=== PATIENT | female | born 1965 | race Caucasian/White ===

== ENCOUNTER 2017-09-22 15:29 | Emergency (ER) | payer OTHER, MEDICAID | END 2017-09-22 16:04 | disposition home or self-care (01) | LOC: E/R 16:04 | DX: J02.0 Streptococcal pharyngitis (principal) | CPT/HCPCS: 99283; Z7502 ==

== ENCOUNTER 2018-10-19 12:03 | Day surgery (SDC) | payer OTHER ==
[~2018-10-19 12:03] MED LIST: PROPOFOL 200 MG INJ
[2018-10-19] MEDS ORDERED: LIDOCAINE 2% (SDV) 5 ML INJ (13:48)
[2018-10-19] MEDS ORDERED: PROPOFOL 60 ML (13:48)
[2018-10-19] MEDS ORDERED: FENTAnyl 50 MCG/ML VIAL IV (14:00)
[2018-10-19] MEDS ORDERED: EPHEDrine SULFATE 50 MG/5 ML SYG IV (14:00)
[2018-10-19] MEDS ORDERED: hydrALAzine 20 MG INJ IV (14:00)
[2018-10-19] MEDS ORDERED: LABETALOL HCL 20MG INJ IV (14:00)
[2018-10-19] MEDS ORDERED: ONDANSETRON 4 MG INJ IV (14:00)
== END 2018-10-19 16:25 | disposition home or self-care (01) ==
LOC: GIL 12:03
DX: Z12.11 Encounter for screening for malignant neoplasm of colon (principal); K64.8 Other hemorrhoids; E66.9 Obesity, unspecified; Z68.29 Body mass index [BMI] 29.0-29.9, adult
CPT/HCPCS: 45378; 84703